=== PATIENT | male | born 1995 | race Asian ===

== ENCOUNTER 2022-11-11 10:57 | Emergency (ER) | payer BC, SELFPAY ==
[2022-11-11 11:01] VITALS: BP 151/84; PULSE 103; RESP 16; O2SAT 98
--- NOTE | 2022-11-11 11:01 | W.ED.GENAD ---
Discharge Plan Disposition Patient Disposition: Home Discharge Details Clinical Impression: Laceration of left knee, Immunization, tetanus-diphtheria Primary Care Provider: None,None ED Provider: Ramsey Lincoln Home Meds and New Rx's Prescriptions: New cephalexin 500 mg capsule 500 mg PO QID 7 Days Qty: 28 0RF Discharge Instructions Instructions: Laceration (ED) Additional Instructions: You were seen in the emergency department for your laceration. The orthopedic team will call you for a follow-up appointment. If you develop streaking signs of infection or any foul-smelling drainage from your wound please return to the emergency department. Please do not bear weight on your left lower extremity until you are cleared by the orthopedic team. Please use these crutches. Please take these antibiotics as directed to prevent infection. Please elevate your leg overnight. For your pain please take medications as follows: 1. Take acetaminophen (Tylenol), 1,000 mg (two 500 mg tabs) every 6 hours 2. Take ibuprofen (Advil), 400 mg every 6 hours. Medical Decision Making This is an overall quite well-appearing normothermic and mildly tachycardic previously healthy 27-year-old male with left knee injury concerning for traumatic arthropathy secondary to chainsaw accident. We will obtain a dry CT scan of his left knee to assess for any obvious air. We will update his tetanus status. He is not anticoagulated to suggest risk for ongoing bleeding. Based on the extent of his wound will treat with antibiotics using cephalexin or cefazolin depending on whether or not his joint is open. We will arrange for outpatient orthopedic follow-up and place patient in a knee immobilizer nonweightbearing with crutches to allow for healing. 12:15 PM Patient's laceration does not involve the joint??no signs of traumatic arthropathy on CT scan. Will complete primary closure keep patient nonweightbearing with outpatient orthopedic follow-up. His tachycardia resolved with oral analgesia. HPI General Date/Time Provider Initiated Documentation: 11/11/22 11:01. HPI Narrative: This is a previously healthy 27-year-old male arrives via private vehicle after an injury he sustained approximately 1 hour ago with a chainsaw. Patient reportedly was not wearing chaps but was wearing his snow pants cutting trees in a maple sugar prakash. He lost control of his chainsaw and he cut his left leg over his left knee. He denies any other injuries. He has been ambulatory since his injury. He is not on any anticoagulants. He received his immunizations during childhood. Related Data Home Medications Medication Instructions Recorded Confirmed cephalexin 500 mg capsule 500 mg PO QID 7 days #28 caps 11/11/22 Previous Rx's Medication Instructions Recorded cephalexin 500 mg capsule 500 mg PO QID 7 days #28 caps 11/11/22 Allergies Allergy/AdvReac Type Severity Reaction Status Date / Time Penicillins Allergy Unknown Unverified 11/11/22 11:06 [facility] All Active Problems (Updated 11/11/22 @ 15:10 by Ramsey Lincoln MD) Laceration of left knee (Acute) Immunization, tetanus-diphtheria (Acute) Social History Smoking/Tobacco Use Status: Former Tobacco Use Smoking risk assessment performed?: Yes Do you feel safe at home: Yes Exam Narrative Exam Narrative: General: Well-appearing in no acute distress speaking in complete sentences. Head: Normocephalic, atraumatic Ear, nose, mouth, throat: Grossly normal inspection. Normal voice, handling secretions normally. Neck: Trachea midline. Cardiovascular: Well-perfused distal extremities. Respiratory: Nonlabored respiration. Gastrointestinal: Nondistended abdomen. Musculoskeletal: Overlying the left knee extending medially at the superior aspect and lateral at the distal aspect there is an approximately 4 cm hemostatic gapping wound that extends through the subcutaneous tissue into the muscles concerning for open traumatic arthropathy. 5 out of 5 left foot strength in dorsi and plantarflexion. Good distal pulses in left foot PT and DP 2+. Left foot warm and well-perfused. Picture of laceration as shown here: Skin: Normal for age and race, grossly normal temperature and turgor. No acute rash. Neurologic: Alert and appropriate, no apparent acute deficits. Psychiatric: Mood and manner are appropriate. Grooming and personal hygiene are appropriate.
--- NOTE | 2022-11-11 11:15 | DI.CT_ITS ---
Exam(s) CT LOWER EXTREMITY LT WO EXAM: CT LOWER EXTREMITY LT WO CLINICAL HISTORY: Left knee laceration concerning for open joint. TECHNIQUE: Imaging Protocol: Axial computed tomography images with coronal and sagittal reformatted images were created and reviewed. COMPARISON: No exams were available for comparison FINDINGS: Bones: The osseous structures and articular surfaces are intact. Bony alignment is satisfactory. N o cellulitic or osteomyelitic changes are identified. There is no evidence of joint space narrowing or cystic degeneration seen. No lytic or sclerotic lesions are identified. Soft Tissues: There is a laceration in the soft tissues medial to the knee. Small amount of subcutan eous air is also seen in the region. There is no communication with the joint space. There is no ai r seen within the joint space. IMPRESSION: 1. Soft tissue laceration involving the anterior medial knee. 2. There is no communication with the joint space. No air is seen within the knee joint. 3. Findings were discussed with Dr. Jazlyn peguero at 11:59 a.m. on 11/11/2022. RADIATION DOSE DELIVERED: 258.15mGy.cm Total DLP 258.15mGy.cm Total DLP DATA REPOSITORY: All CT scans at this facility are submitted to the National Radiology Data Registry (NRDR) Dose Index Registry (DIR) with the [employer] ([employer]). RADIATION OPTIMIZATION: All CT scans at this facility use at least one of these dose optimization te chniques: automated exposure control; mA and/or kV adjustment per patient size (includes targeted exa ms where dose is matched to clinical indication); or iterative reconstruction.
[2022-11-11 12:00] VITALS: TEMP 36.6
[2022-11-11] MEDS: Lidocaine/Epinephri/Tetracaine Topical Gel 5 ML TP (12:18)
[2022-11-11] MEDS: oxyCODONE 10 MG TAB PO (12:23)
[2022-11-11] MEDS: Cephalexin 500 MG CAP PO (12:24)
[2022-11-11] MEDS: Acetaminophen 500 MG TAB 1000 MG PO (12:24)
[2022-11-11] MEDS: Ibuprofen 600 MG TAB PO (12:25)
[2022-11-11 13:45] VITALS: BP 109/79; PULSE 78; RESP 16; O2SAT 99
== END 2022-11-11 14:07 | disposition home or self-care (01) ==
PROVIDERS: Emergency Provider Emergency Medicine
DX: S81.012A Laceration without foreign body, left knee, initial encounter (principal); W29.3XXA Contact with powered garden and outdoor hand tools and machinery, initial encounter; R00.0 Tachycardia, unspecified
CPT/HCPCS: 12002; 29505; 90471; 99284; 73700